=== PATIENT | female | born 1975 | race Two or more races ===

== ENCOUNTER 2019-04-08 15:48 | Outpatient (AMB) | payer MEDICAID, SELFPAY ==
--- NOTE | 2019-04-08 17:38 | UCVISIT ---
Intake Ht./Wt. Decline/Exclusions Patient Declined Height and Weight this visit: No PT Meets exclusion criteria: No Vital Signs 04/08/19 17:40 Height 5 ft 4 in Height Method Measured Weight 70.789 kg Weight Measurement Method Standing Scale BMI 26.8 Temp 98.7 F Temp Source Oral Pulse 80 Pulse Source Monitor Respiration 16 BP 123/82 Blood Pressure Source Automatic Cuff Blood Pressure Location Right Upper Arm Position Sitting Pulse Oximetry (%) 80 L Oxygen Delivery Method Room Air Intake [place] Travel (last 14 days): No [facility] Travel (last 14 days): No Been in Contact w/Anyone Being Evaluated for Coronavirus (last 14 days): No Been in Close Contact w/Anyone Dx w/Coronavirus: No Zika Travel: No Been in contact w/anyone who has been Dx w/Zika Virus: No Been in contact w/anyone sick during travel outside country: No Patient >or equal to 18 years BMI outside of range 18.5-24.9: Yes Visit Reasons: UC Ear complaints Primary Care Provider: Len Adamson Triage Triage Allergy / Med Rec Allergies NSAIDS (Non-Steroidal Anti-Inflamma Allergy (Unknown, Verified 04/08/19 17:59) Band Placement: Patient Identification AZAM: 6-Eid-Vibssl Arrival Mode of Arrival: Private Vehicle Method of Arrival: Ambulatory Accompanied By: Self PCP or OBGYN visit in last 3 months: No Language Preferred Language: German Manager Order Required: No Female History Now: No : No Social History Alcohol / Drugs Hx Alcohol Use: No Hx Substance Use: No Safety Do You Feel Safe at Home: Yes Authorities Contacted: N/A Hughes Fall Scale Special Populations Patient Comatose, Paralyzed or Immobile: No Patient Under the Age of 44 Years Old: No Assessment History of falling; immediate or within 3 months: No Secondary diagnosis: No Ambulatory aid: None IV Infusion: No Gait/Transferring: Normal/bedrest/immobile Mental Status: Oriented to own ability Score Score: 0 Risk Level/Action Risk Level: Low Risk Action: Good Basic Nursing Care Fall Star Level 1 Fall Star Level 1: Yes Patient Education Topic Education Topics: Discharge Instructions and Plan of Care Teaching Recipient: Patient Readiness, Motivation to Learn: Active Methods: Verbal instruction and Hand Out Educ Materials Suggested by INFO Button/Rx Monograph Given: No Response: Verbalize Understanding Manager Order Required: No Population Health PM Hx Congestive Heart Failure: No Hx Diabetes Mellitus Type 1: No Hx Diabetes Mellitus Type 2: No Hx Renal Disease: No Hx Chronic Obstructive Pulmonary Disease (COPD): No Past Medical History Reviewed and agree with Nursing documentation.: Yes Past Medical History History Provided By: Patient Past Medical History: Yes Cardiac Medical History Hx Cardiac Disorders: No Hx Congestive Heart Failure: No Endocrine Medical History Hx Endocrine Disorders: No Hx Diabetes Mellitus Type 1: No Hx Diabetes Mellitus Type 2: No Hx Hypothyroidism: No Gastrointestinal Medical History Hx Gastrointestinal Disorders: Yes Hx GERD: Yes Hx Obesity: Yes (GASTRIC BYPASS) Genitourinary Medical History Hx Genitourinary Disorders: Yes (Kidney cysts bilateral) Hx Renal Disease: No Hematologic Medical History Hx Blood Disorders: No Hx Anemia: No Hx Clotting Problems: No Hx Leukemia: No Hx Sickle Cell Disease: No Musculoskeletal History Hx Musculoskeletal Disorders: Yes Hx Arthritis: Yes Hx Back Pain: Yes Neurologic Medical History Hx Neurological Disorders: No Hx Seizures: No Psycho/Social Medical History Hx Psychosocial Disorder: Yes Hx Anxiety: Yes Hx Depression: Yes Hx Post Traumatic Stress Disorder: Yes Reproductive Female History Hx Previous Pregnancies: Yes (x2) Respiratory Medical History Hx Asthma: No Hx COPD: No General Surgical History Hx Surgery: Yes Cardiac Surgical History Hx Cardiac Surgery: No GI Surgical History Hx Gastric Bypass Surgery: Yes (04/2016) Female Reproductive Surgical History Hx Tubal Ligation: Yes Other Medical History ([facility]) Hx Falls: No Hx Hospitalization: No [facility] -Treatments & Interventions Hx Anesthesia Reactions: No Hx Blood Transfusions: No HPI Ear Problem Details: Patient presents to the urgent care with complaint of throat irritation and left ear discomfort times today. Denies any fever, congestion, cough, rash. Review of Systems (UC) Review of Systems All systems reviewed & no additional complaints except as documented Exam (UC) Limitations: no limitations General Appearance: alert, in no apparent distress, comfortable, cooperative, healthy appearing, well developed and well groomed Head exam: atraumatic, normocephalic and normal inspection Eye exam: Reports normal appearance and Reports EOMI ENT exam: Present normal exam, normal external ear exam, TM's normal bilaterally, normal oropharynx and mucous membranes moist Neck Exam: Present normal inspection, non-tender, trachea midline and supple Chest/Breast Exam: Present normal inspection and symmetric chest wall rise SPO2%: 97% SPO2 type: Room Air SPO2% Normal/Abnormal: Normal Respiratory exam: Present normal respiratory effort and able to speak in complete sentences Neurological Exam: Present alert, awake and oriented X3 Psychiatric exam: Present normal affect and normal mood Skin exam: Present warm, dry, intact and normal color Office Procedures Level of Care Nursing/Assessment/Reassessment Patient Status: Established Patient Nursing Assessment/Reassessment: Triage Asessment, Initial Vital Signs and RN General Assessments Coordination of Care: DC Instructions Simple 1-2 sets Established Patient Charge Established Patient Point Assignment: 40 Established Patient Point Assignment: EP Level 2 (40-75) Procedures: Pulse Ox reading: Yes Assessment and Plan Assessment & Plan (1) Ear Problem: (2) Acute pharyngitis: Plan - Cheyenne Petty PA-C: Follow-up in 3-5 days if your symptoms have not improved, or sooner if needed. Go the emergency room if emergent concerns. Plan Details Primary Care Provider: Len Adamson Instructions: Sore Throat Additional Information PA/ELECTRICAL ESTIMATOR Supervising Physician: Denis Waller DC Evaluation Discharge Information Seen, Treated and Released by Provider: No Left Prior to Receiving Discharge Instructions: No Transfer to Outside Facility: No Vital Signs Vitals Signs N/A: Yes Pain Pain Medication / Other Intervention Provided: No Medication Medication Given this Visit: No Discharge Information Condition on Discharge: Stable Mode of Discharge: Ambulatory Discharge Transportation: Private Vehicle Instructions Manager Order Required: No Discharge Instructions Given To: Patient Was Follow up Care Ordered: Yes Verbalizes Understanding of Discharge Instructions: Yes Community [facility] Center information card provided?: Yes Patient plan follow up w/PCP for [facility]: No
[2019-04-08 17:40] VITALS: BP 123/82; PULSE 80; RESP 16; TEMP 37.1; O2SAT 80; BMI 26.8
[2019-04-08 18:39] VITALS: O2SAT 97
== END 2019-04-08 18:49 | disposition home or self-care (01) ==
PROVIDERS: PCP Physician Assistant Medical; Referring Provider Physician Assistant Medical; Visit Provider Physician Assistant Medical

== ENCOUNTER 2024-01-31 18:48 | Emergency (ER) | payer MEDICAID, SELFPAY ==
[2024-01-31 18:49] VITALS: BMI 48.4
[2024-01-31 19:08] VITALS: BP 111/76; PULSE 76; RESP 17; TEMP 36.8; O2SAT 98
--- NOTE | 2024-01-31 19:35 | EDNOTE_ITS ---
<Statement entered by Alison Dexter MD - 02/11/24 17:37> As co-signing physician, I was present and available for consult prn. I concur with the plan and care as documented by the midlevel provider. ED Animal Bite RME/HPI General Stated Complaint: CAT SCRATCHES TO LEFT ARM TODAY Time Seen by Provider: 01/31/24 19:30 Source: patient Arrival date/time: 01/31/24 18:48 48-year-old female presents emergency department complaining of cat bite to left forearm that occurred today after feeding stray cat. Patient reports is not up-to-date with tetanus vaccine. Mode of arrival: ambulatory Limitations: no limitations Related Data Patient tetanus UTD: No Home Medications ?Medication ?Instructions ?Recorded ?Confirmed topiramate 50 mg tablet 100 mg PO BID 12/08/19 11/21/21 diclofenac sodium 1 % topical gel See Rx Instructions .Route .COMPLEX 06/26/21 11/21/21 hydrocodone 10 mg-acetaminophen 1 tab PO Q6H 06/26/21 11/21/21 325 mg tablet meclizine 25 mg tablet 25 mg PO TID 06/26/21 11/22/21 metoclopramide HCl 10 mg tablet 10 mg PO TID 06/26/21 11/22/21 pregabalin 150 mg capsule 150 mg PO BID 06/26/21 11/22/21 sennosides 8.6 mg tablet (senna) 17.2 mg PO HS 06/26/21 11/22/21 lidocaine 5 % topical patch 1 patch topical QDAY 11/20/21 11/21/21 clotrimazole 1 % topical cream See Rx Instructions .Route .COMPLEX 11/21/21 11/21/21 docusate sodium 250 mg capsule 250 mg PO QDAY 11/21/21 11/21/21 estradiol 1 mg tablet 1 mg PO QDAY 11/21/21 11/21/21 fluticasone propionate 50 1 spray intranasal QDAY 11/21/21 11/21/21 mcg/actuation nasal spray,suspension ondansetron 8 mg disintegrating 8 mg PO TID PRN Nausea 11/21/21 11/21/21 tablet promethazine-DM 6.25 mg-15 mg/5 mL See Rx Instructions .Route .COMPLEX 11/21/21 11/21/21 oral syrup sertraline 100 mg tablet 200 mg PO QDAY 11/21/21 11/21/21 sumatriptan succinate 100 mg tablet See Rx Instructions .Route .COMPLEX 11/21/21 11/21/21 tizanidine 4 mg tablet 4 mg PO TID PRN MUSCLE SPASMS 11/21/21 11/21/21 Previous Rx's ?Medication ?Instructions ?Recorded gabapentin 300 mg capsule 300 mg PO BID #10 caps 11/24/21 oxycodone 5 mg capsule 5 mg PO BID PRN pain #10 caps 11/24/21 amoxicillin 875 mg-potassium 1 tab PO BID 7 days #14 tabs 01/31/24 clavulanate 125 mg tablet Allergies Allergy/AdvReac Type Severity Reaction Status Date / Time NSAIDS (Non-Steroidal AdvReac Unknown Verified 01/31/24 18:51 Anti-Inflamma Review of Systems Review of Systems Systems Reviewed: All systems reviewed, normal except as documented Constitutional Constitutional: Reports system reviewed and no additional complaints, except as documented, Denies body ache(s), Denies chills and Denies fever(s) Eyes Eyes: Reports system reviewed and no additional complaints, except as documented and Denies change in vision ENT Ears, Nose, Mouth, and Throat: Reports system reviewed and no additional complaints, except as documented, Denies disequilibrium, Denies dizziness, Denies sore throat and Denies vertigo Cardiovascular Cardiovascular: Reports system reviewed and no additional complaints, except as documented, Denies chest pain and Denies dyspnea Respiratory Respiratory: Reports system reviewed and no additional complaints, except as documented, Denies chest congestion, Denies cough and Denies dyspnea Gastrointestinal Gastrointestinal: Reports system reviewed and no additional complaints, except as documented, Denies abdominal pain, Denies nausea and Denies vomiting Musculoskeletal Musculoskeletal: Reports system reviewed and no additional complaints, except as documented, Denies abnormal gait and Denies arthralgias Integumentary/Breasts Skin/Breast: Reports system reviewed and no additional complaints, except as documented, Denies erythema, Denies rash and Reports wounds Neurologic Neurologic: Reports system reviewed and no additional complaints, except as documented, Denies abnormal gait, Denies disequilibrium, Denies dizziness and Denies vertigo Past Medical History Past Medical History NEUROLOGIC: Positive Neurological Disorders and Migraine; Negative Seizures CARDIAC: Negative Cardiac Disorders, Congestive Heart Failure, Edema, Cellulitis or Varicose Veins RESPIRATORY: Negative Chronic Obstructive Pulmonary Disease (COPD), Asthma, Tuberculosis, Pulmonary Embolism or Sleep Apnea GASTROINTESTINAL: Positive Gastrointestinal Disorders, Gall Bladder Disease, Gastroesophageal Reflux Disease and Obesity; Negative Hepatitis GENITOURINARY: Positive Genitourinary Disorders and Renal Disease REPRODUCTIVE: Positive Previous Pregnancies MUSCULOSKELETAL: Positive Musculoskeletal Disorders and Arthritis ENDOCRINE: Negative Endocrine Disorders, Diabetes Mellitus Type 1, Diabetes Mellitus Type 2 or Hypothyroidism HEMATOLOGIC: Negative Blood Disorders, Anemia, Leukemia, Sickle Cell Disease or Clotting Problems PSYCHO/SOCIAL: Positive Depression, Anxiety and Post Traumatic Stress Disorder OTHER HISTORY: Positive Chicken Pox and Cancer (Kidney); Negative Hospitalization, Autoimmune Disease, Shingles, Falls, Blood Transfusions, Blood Transfusion Reaction, Anesthesia Reactions, Chemotherapy, Radiation Therapy, MRSA, Measles or Mumps Family History FAMILY HISTORY: Positive Family Cardiac Disorders and Family Surgery; Negative Family Psychiatric Problems, Family Respiratory Disorders, Family Gastrointestinal Problems, Family Cancer or Family Anesthesia Reaction Surgical History SURGICAL: Positive Gastric Bypass Surgery and Tubal Ligation; Negative Cardiac Surgery, Pacemaker, Endocrine Surgery, Ear Surgery or Eye Surgery Social History SMOKING STATUS: Never smoker SUBSTANCE USE: marijuana ED Exam General Limitations: Present no limitations General appearance: Present alert and in no apparent distress Head Head exam: Present atraumatic Eye Eye exam: Present normal appearance, PERRL and EOMI ENT ENT exam: Present normal exam, normal oropharynx and mucous membranes moist Neck Neck exam: Present normal inspection, full ROM and trachea midline Chest Chest inspection: Present normal inspection and symmetric chest wall rise Respiratory Respiratory exam: Present normal lung sounds bilaterally Cardiovascular Cardiovascular exam: Present regular rate, normal rhythm and normal heart sounds Abdominal Exam Abdominal exam: Present soft and normal bowel sounds Extremities Exam Extremities exam: Present normal inspection and full ROM Back Exam Back exam: Present normal inspection and full ROM Neurological Exam Neurological exam: Present alert, oriented X3 and CN II-XII intact Psychiatric Psychiatric exam: Present normal affect and normal mood Skin Skin exam: Present warm and dry Expanded Skin Exam Type of lesion: Present laceration and abrasion Distribution: Present generalized and LUE Description: Present other (Abrasions and small laceration) Body image: 2 1. Laceration 2. Generalized small abrasions and cat scratches Course Quality Measures none Orders Category Date Time Status Set Up Suture Tray STAT Care 01/31/24 19:35 Completed Wound Care [Wound Care] NOW Care 01/31/24 19:35 Completed Lidocaine 1% 20 ml [Xylocaine 1% 20 ML] Med 01/31/24 19:35 Discontinued 20 ml INFL X1 ONE Tet,Diphth,Pertuss(Acell)-Tdap [Boostrix Vacc] Med 01/31/24 19:35 Discontinued 0.5 ml IMI .ONCE ONE Vital Signs Vital signs: Vital Signs Temperature 98.3 F 01/31/24 19:08 Pulse Rate 76 01/31/24 19:08 Respiratory Rate 17 01/31/24 19:08 Blood Pressure 111/76 01/31/24 19:08 Pulse Oximetry (%) 98 01/31/24 19:08 Oxygen Delivery Method Room Air 01/31/24 19:08 98% room air within normal limits Procedures -ED Laceration Laceration 1: Site: upper extremity Side (If applicable): left Size (cm): 3 Description: linear Depth: simple, single layer Local Anesthetic: lidocaine 1% Amount of anesthesia used (mL): 1 Pre-repair: wound explored and irrigated extensively Skin layer closed with: nylon Size (cm): 4-0 Number of sutures: 3 Technique: simple, interrupted Animal Bite MDM Narrative MDM Narrative:: 48-year-old female presents emergency department complaining of cat bite to left forearm that occurred today after feeding stray cat. Patient reports is not up-to-date with tetanus vaccine. Left upper extremity scratches and laceration cleansed with copious amount of normal saline. Tetanus vaccine was provided. Using 1% lidocaine as local anesthetic small approximately 3 cm laceration was approximated using 4-0 Prolene 3 simple interrupted sutures. Patient tolerated well. Patient left upper extremity neurovascularly intact. Patient instructed to return to the emergency department or primary provider's office in 7 to 10 days for suture removal. Patient discharged on Augmentin and instructed to follow-up with primary care provider in 24 to 48 hours and return to emergency department for any worsening symptoms or as needed. Patient data External records reviewed:: [facility] previous records Clinical information provided by:: patient Social determinants that could affect healthcare access:: none Patient has the following chronic illnesses:: See chart How is presenting disease/condition affected by chronic disease/condition?: no chronic disease Evaluation data The following diagnostics were reviewed and interpreted by me:: other (specify) (N/A) Lab and/or radiology exams considered but not ordered:: N/A Interpretation Summary: N/A Medications / Prescriptions Medications or Prescriptions considered but not ordered:: Ordered Medication administrations:: Medication Administration History Discontinued Medications Diphtheria/Tetanus/Acell Pertussis (Diphth,Pertuss(Acell),Tet Vac 0.5 Ml Vial) 0.5 ml IMi .ONCE ONE Stop: 01/31/24 19:36 Last Admin: 01/31/24 20:38 Dose: 0.5 ml Documented By: Lidocaine HCl (Lidocaine Hcl 1% 20 Ml Vial) 20 ml INFL X1 ONE Stop: 01/31/24 19:36 Last Admin: 01/31/24 20:38 Dose: 20 ml Documented By: Given Consultations Consultation(s) initiated? (list below): No Diagnosis Differential diagnosis animal bite: bite by animal, cat bite and dog bite Most likely diagnosis given after review of the tests above:: Cat bite involving extremity Admission Indicated Admission indicated?: not indicated Admission Request Was there a request for admission?: No Disposition Plan Disposition Plan: Discharge Discharge Attestation Discharge Attestation: The patient and all family members were given an opportunity to ask questions and understood the discharge instructions. Discharge instructions specifically effects, indications for sooner follow up or return to the emergency department, and the expected course of current diagnosis. Patient condition: Stable Discharge Plan Plan Patient Disposition: HOME (Self Care) Disposition Comment: Stable Prescriptions/Referrals Prescriptions/Med Rec: New amoxicillin-pot clavulanate 875-125 mg tablet 1 tab PO BID 7 Days Qty: 14 0RF No Action sennosides [senna] 8.6 mg tablet 17.2 mg PO HS Patient Comments: TAKE TWO TABLETS BY MOUTH AT BEDTIME NEEDED FOR CONSTIPATION hydrocodone-acetaminophen 10-325 mg tablet 1 tab PO Q6H Patient Comments: TAKE ONE TABLET BY MOUTH EVERY 6 HOURS NEEDED FOR PAIN FOR 30 DAYS meclizine 25 mg tablet 25 mg PO TID Patient Comments: TAKE ONE TABLET BY MOUTH THREE TIMES DAILY FOR NAUSEA AND VOMITING metoclopramide HCl 10 mg tablet 10 mg PO TID pregabalin 150 mg capsule 150 mg PO BID Patient Comments: TAKE ONE CAPSULE BY MOUTH TWICE DAILY diclofenac sodium 1 % gel See Rx Instructions .ROUTE .COMPLEX Patient Comments: APPLY TO THE AFFECTED AREA(S) TWO GRAMS THREE TIMES DAILY Rx Instructions: APPLY TO THE AFFECTED AREA(S) TWO GRAMS THREE TIMES DAILY topiramate 50 mg Tablet 100 mg PO BID lidocaine 5 % adhesive patch,medicated 1 patch TOPICAL QDAY Patient Comments: APPLY ONE PATCH FOR 12 HOURS ON AND REMOVE FOR 12 HOURS NEEDED FOR PAIN promethazine-DM 6.25-15 mg/5 mL syrup See Rx Instructions .ROUTE .COMPLEX Patient Comments: TAKE ONE TEASPOONFUL BY MOUTH EVERY 6 HOURS NEEDED FOR 10 DAYS Rx Instructions: TAKE ONE TEASPOONFUL BY MOUTH EVERY 6 HOURS NEEDED FOR 10 DAYS tizanidine 4 mg tablet 4 mg PO TID PRN (Reason: MUSCLE SPASMS) Patient Comments: TAKE ONE TABLET BY MOUTH THREE TIMES DAILY NEEDED FOR MUSCLE SPASMS sumatriptan succinate 100 mg tablet See Rx Instructions .ROUTE .COMPLEX Patient Comments: TAKE 1 TABLET BY MOUTH AT ONSET OF MIGRAINE. MAY REPEAT ONCE AFTER 2 HOURS IF NEEDED Rx Instructions: TAKE 1 TABLET BY MOUTH AT ONSET OF MIGRAINE. MAY REPEAT ONCE AFTER 2 HOURS IF NEEDED sertraline 100 mg tablet 200 mg PO QDAY Patient Comments: TAKE TWO TABLETS BY MOUTH EVERY DAY ondansetron 8 mg tablet,disintegrating 8 mg PO TID PRN (Reason: Nausea) Patient Comments: DISSOLVE ONE TABLET BY MOUTH THREE TIMES DAILY NEEDED BEFORE MEALS FOR NAUSEA AND VOMITING Rx Instructions: DISSOLVE ONE TABLET BY MOUTH THREE TIMES DAILY NEEDED BEFORE MEALS FOR NAUSEA AND VOMITING estradiol 1 mg tablet 1 mg PO QDAY Patient Comments: TAKE ONE TABLET BY MOUTH ONCE DAILY docusate sodium 250 mg capsule 250 mg PO QDAY Patient Comments: TAKE ONE CAPSULE BY MOUTH NEEDED EVERY DAY fluticasone propionate 50 mcg/actuation spray,suspension 1 spray INTRANASAL QDAY Patient Comments: INSTILL ONE SPRAY IN EACH NOSTRIL DAILY FOR ALLERGY clotrimazole 1 % cream See Rx Instructions .ROUTE .COMPLEX Patient Comments: APPLY TO THE AFFECTED AREA(S) TWICE DAILY Rx Instructions: APPLY TO AFFECTED AREAD TWICE DAILY oxycodone 5 mg capsule 5 mg PO BID MDD 10mg PRN (Reason: pain) Qty: 10 0RF gabapentin 300 mg capsule 300 mg PO BID Qty: 10 0RF Referrals: Len Adamson PA-C [Primary Care Provider] - In 1 week Problem List Clinical Impression: Cat bite involving extremity Patient/Caregiver Discharge Instructions Discharge Activity: activity as tolerated Additional Instructions: Keep wound clean dry and open to air. May cover for the first 24 hours. Wash with warm water and soap. Take antibiotics as prescribed. Follow-up with primary care provider. Return to emergency department or primary care provider's office in 7 to 10 days for suture removal. return to the emergency department for any worsening symptoms or as needed. Print Language: Bruneian Stand Alone Forms: Kari Award Info., Patient Portal Info Letter PA/EXAMINATION GRADER Supervising Physician PA/EXAMINATION GRADER Supervising Physician: Dr. Dexter
[2024-01-31] MEDS: DIPHTH,PERTUSS(ACELL),TET VAC 0.5 ML VIAL IMi (20:38)
[2024-01-31] MEDS: LIDOCAINE HCL 1% 20 ML VIAL INFL (20:38)
== END 2024-01-31 21:14 | disposition home or self-care (01) ==
PROVIDERS: Emergency Provider Emergency Medicine; PCP Physician Assistant Medical
DX: S51.812A Laceration without foreign body of left forearm, initial encounter (principal); W55.03XA Scratched by cat, initial encounter; Z23 Encounter for immunization
CPT/HCPCS: 12002; 90471; 90715; 99283; J3490